=== PATIENT | male | born 1950 | race Caucasian/White ===

== ENCOUNTER 2018-03-18 18:56 | Inpatient (IN) | payer MEDICARE ==
[~2018-03-18 18:56] MED LIST: ISOVUE-370 76%-LOCM 1 ML ONE
[2018-03-18] MEDS ORDERED: Ondansetron HCl/PF 4 MG/2 ML Vial ONE (19:20)
[2018-03-18 19:33] LABS: #Lymphocytes 1.4 thou/uL (1.20-3.40); #Monocytes 0.1 thou/uL (0.11-0.59); #Neutrophils 9.1 thou/uL (1.40-6.50); %Basophils 0.2 % (0.0-1.0); %Eosinophils 0.2 % (0.0-10.0); %Lymphocytes 13.3 % (21.0-51.0); %Neutrophils 85.3 % (42.0-75.0); Hemoglobin 17.1 g/dL (14.0-18.0); Mean Corpuscular Hemoglobin 36.8 pg (27.0-31.0); Mean Platelet Volume 6.9 fL (7.4-10.4); Platelet Count 204 thou/uL (130-400); RBC Distribution Width 12.2 % (11.5-14.5); Red Blood Cell (RBC) Count 4.66 mill/uL (4.70-6.10); White Blood Cell (WBC) Count 10.7 thou/uL (4.8-10.8)
[2018-03-18] MEDS ORDERED: Ondansetron HCl/PF 4 MG/2 ML Vial SLOW IVP SCH (19:45)
[2018-03-18] MEDS ORDERED: Sodium Chloride 0.9% 1,000 ML IV SCH (19:45)
[2018-03-18] MEDS ORDERED: Vancomycin HCl 1 GM in Premix Bag 1 BAG IVPB ONE (19:45)
[2018-03-18] MEDS ORDERED: MEROPENEM 1 GM/50 ML 1 GM in Premix Bag 1 BAG IVPB ONE (19:45)
[2018-03-18 19:50] LABS: Troponin I Less than 0.010 ng/mL (< 0.028)
[2018-03-18 20:03] LABS: Albumin 4.4 g/dL (3.4-4.8)
[2018-03-18 20:04] LABS: Chloride 97 mmol/L (98-107); Magnesium 1.7 mg/dL (1.6-2.6); Potassium 4.4 mmol/L (3.5-5.1); Sodium 133 mmol/L (136-145)
[2018-03-18 20:05] LABS: Calcium 9.9 mg/dL (7.8-10.44); Glucose 114 mg/dL (80-115)
[2018-03-18 20:06] LABS: Bilirubin Small (Negative); Blood, Urine Small (Negative); Clarity CLOUDY (Clear); Glucose, Urine (Dipstick) Negative (Negative); Leukocyte Moderate (Negative); Nitrite Negative (Negative); Protein, Urine (Dipstick) Negative (Neg-Trace); Specific Gravity, Urine 1.014 (1.002-1.036); pH, Urine 5.5 (5.0-9.0)
[2018-03-18 20:06] LABS: Globulin 3.4 g/dL (2.4-3.5); Protein, Total 7.8 g/dL (5.8-8.1)
[2018-03-18] MEDS ORDERED: Acetaminophen 500 MG TAB ONE (20:06)
[2018-03-18 20:07] LABS: Anion Gap 23 mmol/L (10-20); Bilirubin, Total 4.3 mg/dL (0.2-1.2); Carbon Dioxide 17 mmol/L (23-31)
[2018-03-18 20:08] LABS: Alkaline Phosphatase 121 U/L (40-150)
[2018-03-18 20:08] LABS: Bacteria/HPF 2+ HPF (None Seen); Squamous Epithelial None Seen HPF (0-3); WBC/HPF 21-50 HPF (0-3)
--- NOTE | 2018-03-18 20:08 | RAD ---
PORTABLE CHEST: History: Cough. Comparison: None. FINDINGS/IMPRESSION: Cardiomegaly and mild vascular engorgement. I cannot exclude basilar infiltrate. No significant effus ion. The exam is limited due to soft tissue attenuation and portable technique. Consider upright PA and lateral views of chest in the department if patient can tolerate. POS: [facility]
[2018-03-18 20:09] LABS: Pathc Cast-AUWi Flag 2.61 (0-2.49)
[2018-03-18 20:09] LABS: Calc. Creatinine Clearance 0 mL/min (70-130); Estimated GFR-MDRD 43
[2018-03-18 20:10] LABS: BUN (Urea Nitrogen) 21 mg/dL (8.4-25.7)
[2018-03-18 20:11] LABS: ALT (SGPT) 87 U/L (8-55); AST (SGOT) 119 U/L (5-34)
[2018-03-18 20:12] LABS: CK (CPK) 719 U/L (30-200)
[2018-03-18 20:22] LABS: Hyaline Casts/LPF NONE SEEN LPF (0-3 Hyaline); RBC/HPF 0-3 HPF (0-3)
[2018-03-18 20:25] LABS: Lipase 15361 U/L (8-78)
--- NOTE | 2018-03-18 22:47 | CT ---
CT ABDOMEN AND PELVIS WITH CONTRASTS: Technique: Multiple contiguous axial images were obtained through the abdomen and pelvis with IV enha ncement. Indications: Abdominal pain. Comparison: None. FINDINGS: Lungs are clear. Liver and spleen unremarkable. There are numerous radiopaque gallstones layering in the gallbladder. There is inflammatory change burnett rrounding the head of the pancreas and the second portion of the duodenum. Pancreatis should be exclu ded. There is no evidence of pseudocyst. There is a large cyst which is predominately exophytic from the superior right kidney measuring up to 10 cm. There is a second 3 cm cyst from the posterior right kidney. No hydronephrosis. Aorta normal caliber although calcified. Small bowel loops normal caliber. Scattered diverticula throughout the entire colon. Patient appears to be post left colectomy. There i s a left colostomy in the left abdomen. There is a parastomal hernia with hernia sac herniated throug h this anterior abdominal wall defect. The hernia sac contains colon and small bowel. No evidence of obstruction or strangulation. Images through the pelvis shows a contracted urinary bladder. Post-operative changes are seen at the rectum with prior resection of the rectosigmoid region. There are post-operative changes at this site along with increased presacral soft tissue density, probably on the basis of operative change. IMPRESSION: 1. Cholelithiasis with numerous gallstones and a mildly distended gallbladder. There are inflammatory changes surrounding the pancreas most prominent around the head of the pancreas and second portion o f the duodenum. Pancreatitis should be excluded. 2. Large right renal cyst as described above. 3. A parastomal anterior abdominal wall hernia in the left abdomen. POS: [facility]
[2018-03-18] MEDS ORDERED: Norepinephrine 8 MG/0.9% NS 250 ML ONE (22:48)
--- NOTE | 2018-03-19 00:02 | PDOC.FPRHP ---
- History of Present Illness Chief Complaint: Abdominal pain History of Present Illness: 67yo M with PMH of HTN, HLD, Gout, BPH presenting with a 1.5 day history of severe RUQ abdominal pain. Pt characterized pain as severe and sharp, migrating between RUQ and epigastric region with radiation to the back. Associated Nausea and Vomitting x5 (vomit clear and watery). ED Course: Pt was hypotensive on presentation, was given 4L NS and started on pressors. CT abdomen- cholelithiasis with distended gallbladder, inflamed pancreas. Pt was given Tylenol for pain and started on Vanc 1g and Merrem 1g for UTI and presumed ascending cholangitis. - Allergies/Adverse Reactions Allergies Allergy/AdvReac Type Severity Reaction Status Date / Time Penicillins Allergy Verified 03/19/18 01:32 - Home Medications Medication Instructions Recorded Confirmed Type Allopurinol 300 mg PO HS 03/19/18 03/20/18 History Aspirin [Adult Aspirin] 81 mg PO HS 03/19/18 03/20/18 History Atorvastatin Calcium 20 mg PO HS 03/19/18 03/20/18 History Ibuprofen 800 mg PO HS 03/19/18 03/20/18 History Lisinopril 5 mg PO DAILY 03/19/18 03/19/18 History Metoprolol Tartrate 50 mg PO BID 03/19/18 03/19/18 History Tamsulosin HCl 0.4 mg PO HS 03/19/18 03/20/18 History Triamterene/Hydrochlorothiazid 1 cap PO DAILY 03/19/18 03/19/18 History [Maxide] Folic Acid [Folvite] 1 mg PO DAILY #30 tab 03/21/18 Rx Multivitamin W/ Minerals 1 tab PO DAILY #30 tab 03/21/18 Rx [Theragran M] metroNIDAZOLE [Metronidazole] 500 mg PO BID #14 tablet 03/21/18 Rx - History PMHx: HTN, HLD, BPH, Gout PSHx: Partial Colectomy and appendectomy (14 years ago) FHx: Cholescystitis and cholecystectomy (father) Social: EtOH- 2-4 drinks/night several nights/week. No history of DTs or withdrawal symptoms. Tobacco- denies, drugs- denies - Review of Systems General: reports: fever/chills Respiratory: denies: cough, congestion, shortness of breath Cardiovascular: denies: chest pain, palpitation Gastrointestinal: reports: nausea, vomiting Genitourinary: reports: dysuria. denies: other (hematuria) - Vital signs BP: [92/58] HR: [83] RR: [20] Tmax: [101.7] Pox: [99]% on [2] Wt: [95.25] - Physical Exam Constitutional: awake, alert and oriented HEENT: normocephalic and atraumatic, EOMI Chest: no-tender to palpation Heart: RRR, normal S1/S2 Lungs: CTAB, no respiratory distress Abdomen: soft -Abdomen: tenderness to palpation of epigastric and RUQ. no guarding Skin: no rash/lesions, good turgor Psychiatric: normal mood and affect, good judgment and insight FMR H&P: Results - Labs Result Diagrams: 03/21/18 05:13 03/21/18 05:13 Lab results: WBC 10.7 thou/uL (4.8-10.8) 03/18/18 19:16 Hgb 17.1 g/dL (14.0-18.0) 03/18/18 19:16 Hct 47.6 % (42.0-52.0) 03/18/18 19:16 MCV 102.0 fL (78.0-98.0) H 03/18/18 19:16 Plt Count 204 thou/uL (130-400) 03/18/18 19:16 Neutrophils % 85.3 % (42.0-75.0) H 03/18/18 19:16 Sodium 133 mmol/L (136-145) L 03/18/18 19:16 Potassium 4.4 mmol/L (3.5-5.1) 03/18/18 19:16 Chloride 97 mmol/L (98-107) L 03/18/18 19:16 Carbon Dioxide 17 mmol/L (23-31) L 03/18/18 19:16 BUN 21 mg/dL (8.4-25.7) 03/18/18 19:16 Creatinine 1.61 mg/dL (0.6-1.3) H 03/18/18 19:16 Glucose 114 mg/dL (80-115) 03/18/18 19:16 Lactic Acid 3.5 mmol/L (0.5-2.2) H 03/18/18 20:49 Calcium 9.9 mg/dL (7.8-10.44) 03/18/18 19:16 Total Bilirubin 4.3 mg/dL (0.2-1.2) H 03/18/18 19:16 AST 119 U/L (5-34) H 03/18/18 19:16 ALT 87 U/L (8-55) H 03/18/18 19:16 Alkaline Phosphatase 121 U/L (40-150) 03/18/18 19:16 Creatine Kinase 719 U/L (30-200) H 03/18/18 19:16 CK-MB (CK-2) 14.0 ng/mL (0-6.6) H* 03/18/18 19:16 Serum Total Protein 7.8 g/dL (5.8-8.1) 03/18/18 19:16 Albumin 4.4 g/dL (3.4-4.8) 03/18/18 19:16 Lipase 88761 U/L (8-78) H 03/18/18 19:16 Urine Ketones Negative mg/dL (Negative) 03/18/18 19:57 Urine Blood Small (Negative) H 03/18/18 19:57 Urine Nitrite Negative (Negative) 03/18/18 19:57 Ur Leukocyte Esterase Moderate (Negative) H 03/18/18 19:57 Urine RBC 0-3 HPF (0-3) 03/18/18 19:57 Urine WBC 21-50 HPF (0-3) H 03/18/18 19:57 Ur Squamous Epith Cells None Seen HPF (0-3) 03/18/18 19:57 Urine Bacteria 2+ HPF (None Seen) H 03/18/18 19:57 FMR H&P: A/P - Problem List (1) Septic shock Status: Resolved Code(s): A41.9 - SEPSIS, UNSPECIFIED ORGANISM; R65.21 - SEVERE SEPSIS WITH SEPTIC SHOCK (2) Pancreatitis due to common bile duct stone Status: Acute Code(s): K85.90 - ACUTE PANCREATITIS WITHOUT NECROSIS OR INFECTION, UNSP; K80.50 - CALCULUS OF BILE DUCT W/O CHOLANGITIS OR CHOLECYST W/ O OBST (3) UTI (urinary tract infection) Status: Resolved (4) Ascending cholangitis Status: Acute Code(s): K83.0 - CHOLANGITIS (5) Hyperbilirubinemia Status: Resolved Code(s): E80.6 - OTHER DISORDERS OF BILIRUBIN METABOLISM (6) BPH (benign prostatic hyperplasia) Status: Chronic Code(s): N40.0 - BENIGN PROSTATIC HYPERPLASIA WITHOUT LOWER URINRY TRACT SYMP (7) Increased anion gap metabolic acidosis Status: Resolved Code(s): E87.2 - ACIDOSIS (8) HTN (hypertension) Status: Chronic Code(s): I10 - ESSENTIAL (PRIMARY) HYPERTENSION (9) Gout Status: Acute Code(s): M10.9 - GOUT, UNSPECIFIED (10) Renal cyst Status: Chronic Code(s): N28.1 - CYST OF KIDNEY, ACQUIRED (11) Macrocytosis Status: Acute Code(s): D75.89 - OTHER SPECIFIED DISEASES OF BLOOD AND BLOOD- FORMING ORGANS - Plan 67yo M presenting with abdominal pain Septic Shock 2/2 Ascending cholangitis vs UTI A- MAP >65 s/p initiation of levophed in the ER. Pt s/p 4L NS P- Admit ICU on levophed gtt. - Continue Meropenem for intra-abdominal infection and for coverage of most likely UTI bacteria. No need for renal adjustment. Adjust as needed if CrCl <50 mL/Hr - f/u on BCx and UCx - LR at 150 mL/Hr a/ strict I/Os for goal UOP 0.5 mL/Kg/Hr - General Surgery and GI consulted from the ER and are aware of patient to eval for Urgent ERCP and cholecystectomy Acute Gallstone Pancreatitis A- BISAP 2 giving patient a 2% mortality risk P- Will continue on w/ IVF w/ LR @ 150 mL/Hr as above for goal UOP >0.5 mL/Kg/Hr - NPO - IV morphine available for pain control - GI and surgery consulted - Cont. w/ abx as noted Anion Gap Metabolic Acidosis A- likely 2/2 lactic acidosis from Septic Shock P- Cont. w/ IVF, repeat Lactate pending Elevated LFTs and Hyperbilirubinemia A- likely 2/2 obstructing stone P- GI consulted for ERCP w/ likely sphincterotomy - Gen surg consulted for cholecystectomy - Cont. w/ IVF - routine CMPs pending operative treatment JENIFER vs CKD3 A- Pt w/o prior visits to compare current renal function off of P- routine labs - Renally dose meds as needed Parastomal anterior wall abdominal hernia (non-encarcerated/non-strangulated) -General Surgery consulted from ER, likely will address outpt. 10 cm Right Renal Cyst A- No evidence of obstruction or hydronephrosis P- b/l renal U/S to further evaluated Macrocytosis without anemia - likely from EtOH misuse - RBC Folate, B12, homocysteine, and MMA labs to further evaluate EtOH abuse - Will place patient on ASE protocol 2/2 concern for possible withdrawal - Q24 hr banana bags thiamine supplementation - Counseling HTN -Hold home meds in setting of septic shock HLD -Hold statin in setting of elevated LFT's and hyperbilirubinemia BPH - Cont. home Flomax Gout - Cont. w/ allopurinol FMR H&P: Upper Level - Pertinent history 67 y/o M w/ PMHx of HTN, HLD, BPH, and colon cancer s/p partial colectomy w/ ostomy presents for eval of acute onset nausea and vomiting approx. 1 day ago. Pt reports having chills as well and RUQ abdominal pain that radiates into his back. Pt also endorsing some burning with urination. Pt unable to keep down any fluids 2/2 this. Pt found to be febrile to 101.7 degrees F and tachycardic upon arrival to the ED. He has received 4L of NS in the ER and was started on Vanc and meropenem for antibiotics. Central line was placed w/ BP not responding to IVF and he was started on levophed to maintain his blood pressure. For further details please refer to academic intern note. - Pertinent findings Vitals BP 104/61 HR 101 RR 20 Temp 98.8 degF O2 sat 99% on 2L NC Labs CT-AP Cholelithiasis with numerous gallstones and mildly distended gallbladder. Inflammatory changes surrounding the pancreas most prominent around the head of the pancreas and second portion of the duodenum. 10 cm superior R-renal cyst. Parastomal anterior abdominal wall hernia in the left abdomen. Lipase 15,361 Lactate 3.5 LDH 404 WBC 10.7 Hgb 17.1 Hct 47.6 Plt -204 Neut % - 85.3 Na 133 K 4.4 Cl 97 Co2 17 BUN -21 Cr 1.61 T. bili 4.3 AST 119 ALT 87 CK-MB 14 Trop - <0.01 U/A Moderate LE Small bilirubin Small blood WBC 21-50 2+ bacteria PE: GEN: Obese, NAD PULM: CTA-B/l, no rales or rhonci CARDS: RRR, no mumurs, rubs, or gallops GI: TTP w/ guarding RUQ and epigastrium (RUQ>epigastrium). Otherwise soft. No rigidity EXT: Moves all 4 ext. equally - Plan Date/Time: 03/18/18 6190 I, B. Corby Garzon MD, have evaluated this patient and agree with findings/plan as outlined by academic intern resident. Pertinent changes/additions are listed here. 67 y/o M w/: 1. Septic Shock 2/2 Ascending cholangitis vs UTI -MAP >65 s/p initiation of levophed in the ER. Admit ICU on levophed gtt. -Cont. w/ Meropenem for single angent empiric antibiotic coverage for his intra- abdominal infection. This should also cover for most likely bacteria for UTI as well. CrCl 58 mL/min, no need for dose adjustment at this time. Will continue to monitor and adjust as needed if CrCl <50 mL/Hr -BCx and UCx obtained in the ER. -Pt s/p 4L of NS meeting requirements for 30 mL/Kg fluid resuscitation -Will continue w/ LR at 150 mL/Hr a/ strict I/Os for goal UOP 0.5 mL/Kg/Hr -General Surgery and GI consulted from the ER and are aware of patient to eval for Urgent ERCP and cholecystectomy 2. Acute Gallstone Pancreatitis -BISAP 2 giving patient a 2% mortality risk -Will continue on w/ IVF w/ LR @ 150 mL/Hr as above for goal UOP >0.5 mL/Kg/Hr -Will keep pt NPO for bowel rest and have IV morphine available for pain control -GI and surgery consulted for definitive management as noted above -Cont. w/ abx as noted above for extrapancreatic infection 3. Anion Gap Metabolic Acidosis likely 2/2 lactic acidosis from #1 - Likely 2/2 #1. - Cont. w/ IVF, repeat Lactate pending at time of note 4. Elevated LFTs and Hyperbilirubinemia likely 2/2 obstructing stone GI consulted for ERCP w/ likely sphincterotomy and Gen surg consulted for cholecystectomy Cont. w/ IVF and will continue to monitor w/ routine CMPs pending definitive operative treatment 5. JENIFER vs CKD3 - Pt w/o prior visits to compare current renal function off of - Will continue to monitor w/ routine labs - Renally dose meds as needed 6. Parastomal anterior wall abdominal hernia (non-encarcerated/non-strangulated) -General Surgery consulted from ER, will ask them to evaluate this as well however it does not appear to be urgent at this time and can likely be followed outpatient 7. 10 cm Right Renal Cyst No evidence of obstruction or hydronephrosis Will obtain b/l renal U/S to further evaluated 8. Macrocytosis without anemia - Pt w/ endorsed EtOH intake which this is likely from - Will obtain RBC Folate, B12, homocysteine, and MMA labs to further evaluate 9. EtOH abuse - Will place patient on ASE protocol 2/2 concern for possible withdrawal - Q24 hr banana bags thiamine supplementation - Counseling 10. HTN -Hold home meds in setting of #1 11. HLD -Hold statin in setting of #4 12. BPH - Cont. w/ Flomax 13. Gout - Cont. w/ allopurinol (CrCl 58.24 mL/min) CODE STATUS: FULL CODE LOS > 2 midnights Attending Addendum - Attending Addendum Date/Time: 03/19/18 1031 I personally evaluated the patient and discussed the management with Dr. Bob and Dr. Garzon I agree with the History, Examination, Assessment and Plan documented above with any addition or exceptions noted below. 67 yo male with multiple medical conditions presents with complicated gallstone pancreatitis and ascending cholangitis with septic shock. Has been started on Levophed for maintenance of blood pressure. Currently appears well dispite lab findings. Continue meropenum. Unsure need for Vanc at this time. Place in ICU. Consult GI and Pulm for co-management. Continue to trend labs and monitor VS and UOP closely throughout the night. Tosha
--- NOTE | 2018-03-19 00:10 | RAD ---
PORTABLE CHEST: History: Fever, chills. Comparison: 03-18-18 FINDINGS/IMPRESSION: The lungs appear clear of infiltrate. Heart size is upper normal. There is a central line in place wi th tip overlying the SVC. No acute lung process identified. POS: [facility]
[2018-03-19 00:23] LABS: Troponin I 0.025 ng/mL (< 0.028)
[2018-03-19] MEDS ORDERED: Ondansetron HCl/PF 4 MG/2 ML Vial IVP PRN (01:11)
[2018-03-19] MEDS ORDERED: Ondansetron ODT 4 MG TAB SL PRN (01:11)
[2018-03-19] MEDS ORDERED: Fentanyl 100 MCG/2 ML VIAL SLOW IVP PRN (01:12)
[2018-03-19] MEDS ORDERED: Sodium Chloride 0.45% 1,000 ML IV SCH (01:15)
[2018-03-19] MEDS ORDERED: Norepinephrine 8 MG/0.9% NS 250 ML IVPB SCH (01:39)
[2018-03-19] MEDS ORDERED: Morphine 4 MG/ML VIAL SLOW IVP PRN (01:39)
[2018-03-19] MEDS ORDERED: CCU Electrolyte Replacement 1 EACH FS ONE (01:39)
[2018-03-19] MEDS ORDERED: Potassium Phosphate 12 MMOL in Sodium Chloride 0.9% 250 ML 250 ML IV PRN (02:02)
[2018-03-19] MEDS ORDERED: CCU ELECTROLYTE REPLACEMENT PROTOCOL FS PRN (02:02)
[2018-03-19] MEDS ORDERED: Potassium Chloride 40 MEQ in Premix Bag 1 BAG IVPB PRN (02:02)
[2018-03-19] MEDS ORDERED: Potassium Phosphate 15 MMOL in Sodium Chloride 0.9% 250 ML 250 ML IV PRN (02:02)
[2018-03-19] MEDS ORDERED: Potassium Chloride 20 MEQ TAB PO PRN (02:02)
[2018-03-19] MEDS ORDERED: Magnesium 2 GM/NS 0.9% 100 ML 2 GM in Premix Bag 1 BAG IVPB PRN (02:02)
[2018-03-19] MEDS ORDERED: Potassium Phosphate 9 MMOL in Sodium Chloride 0.9% 100 ML IVPB PRN (02:02)
[2018-03-19] MEDS ORDERED: Potassium Chloride 40 MEQ in Sodium Chloride 0.9% 250 ML 250 ML IVPB PRN (02:02)
[2018-03-19] MEDS ORDERED: Magnesium Oxide 400 MG TAB PO PRN ×2 (02:02)
[2018-03-19] MEDS: Lactated Ringer's 1,000 ML IV SCH ×3 (02:06→18:19)
[2018-03-19 02:21] LABS: Reticulocyte Count 2.5 % (0.5-1.5)
[2018-03-19 02:47] LABS: Band 30 % (5-11); Hemoglobin 13.9 g/dL (14.0-18.0); Lymphocytes 2 % (21-51); MDiff Complete? YES; Mean Corpuscular HGB CONC 36.5 g/dL (32.0-36.0); Mean Corpuscular Hemoglobin 36.8 pg (27.0-31.0); Mean Platelet Volume 6.2 fL (7.4-10.4); Monocytes 2 % (0-10); Neutrophil 66 % (42-75); PLT Morphology Comment Appears Adequate; Platelet Count 134 thou/uL (130-400); RBC Distribution Width 12.1 % (11.5-14.5); Red Blood Cell (RBC) Count 3.76 mill/uL (4.70-6.10); White Blood Cell (WBC) Count 21.7 thou/uL (4.8-10.8)
[2018-03-19] MEDS: Multivitamins, Adult 10 ML, Folic Acid 1 MG, Thiamine HCl 100 MG in Dextrose 5 %-0.45 %... IV SCH (02:52)
[2018-03-19 03:05] LABS: Troponin I 0.026 ng/mL (< 0.028)
[2018-03-19 03:09] LABS: ALT (SGPT) 80 U/L (8-55); AST (SGOT) 92 U/L (5-34); Albumin 3.2 g/dL (3.4-4.8); Alkaline Phosphatase 81 U/L (40-150); Anion Gap 10 mmol/L (10-20); BUN (Urea Nitrogen) 21 mg/dL (8.4-25.7); Bilirubin, Total 4.9 mg/dL (0.2-1.2); Calc. Creatinine Clearance 74 mL/min (70-130); Calcium 8.6 mg/dL (7.8-10.44); Carbon Dioxide 22 mmol/L (23-31); Chloride 103 mmol/L (98-107); Estimated GFR-MDRD 41; Globulin 2.1 g/dL (2.4-3.5); Glucose 105 mg/dL (80-115); Potassium 3.8 mmol/L (3.5-5.1); Protein, Total 5.3 g/dL (5.8-8.1); Sodium 131 mmol/L (136-145)
[2018-03-19] MEDS: MEROPENEM 1 GM/50 ML 1 GM in Premix Bag 1 BAG IVPB SCH ×3 (05:43→21:13)
--- NOTE | 2018-03-19 06:33 | CON ---
DATE OF CONSULTATION: 03/18/2018 HISTORY OF PRESENT ILLNESS: The patient is a 67-year-old male who was in his normal state 2 days ago when he developed right upper quadrant abdominal pain. This pain radiated up into his rig ht shoulder blade, was associated with nausea and vomiting without diarrhea. He had not had previous episodes of pain like this in the past. PAST MEDICAL HISTORY: A permanent colostomy for colorectal cancer. ALLERGIES: PENICILLIN. MEDICATIONS: Antihypertensive and cholesterol lowering medication. SOCIAL HISTORY: He does not smoke. Drinks occasional beer. FAMILY HISTORY: Negative. REVIEW OF SYSTEMS: Ten systems were reviewed and were negative except for above. PHYSICAL EXAMINATION: GENERAL: Shows an overweight male in no acute distress. HEENT: Unremarkable. NECK: Supple. CHEST: Clear. CARDIOVASCULAR: Regular rate and rhythm. ABDOMEN: Soft, nontender, without organomegaly or masses. He has a colostomy in the left lower quad rant. EXTREMITIES: Normal. NEUROLOGIC: Nonfocal. LABORATORY: Shows a white blood cell count 10.7, hemoglobin 17.1, hematocrit of 47.6. Chemistries s ignificant for sodium of 133, CO2 17, creatinine 1.61, total bilirubin 43, AST 119, ALT 87. Lipase o f 15, ____ 361. Urinalysis shows 21-[address] and pelvic [address] shows cholelithiasis with numerous gallstones and mildly distended gallbladde r. There are inflammatory changes around the pancreas, most prominent around the head of the pancrea s and second portion of duodenum, large right renal cyst, parastomal anterior wall abdominal hernia i n the left lower quadrant. ASSESSMENT: 1. Gallstone pancreatitis. 2. Hemoconcentration. 3. Abnormal liver function tests. RECOMMENDATIONS: 1. Aggressive fluid hydration. 2. ERCP in a.m.
[2018-03-19] MEDS ORDERED: Iothalamate Meglumine 60% 50 ML VIAL FS ONE (07:13)
[2018-03-19] MEDS ORDERED: Midazolam HCl 2 mg/2 ml Vial ONE (07:48)
[2018-03-19] MEDS ORDERED: Fentanyl 100 MCG/2 ML VIAL ONE (07:48)
--- NOTE | 2018-03-19 08:30 | ULT ---
RENAL ULTRASOUND: INDICATION: History of abdominal pain and renal cyst. COMPARISON: Prior CT of the abdomen and pelvis with contrast. FINDINGS: There is a mildly septated cyst involving the superior pole of the right kidney measuring up to 11.9 x 9.3 cm. There is an additional simple cyst measuring 3 cm involving the right mid kidney. There i s a small simple cyst involving the inferior pole of the left kidney measuring 1.6 cm. The bladder a ppeared within normal limits. The right kidney measured 12.2 x 5.8 x 3.9 cm. The left kidney measured 13.5 x 6.2 x 4.4 cm. IMPRESSION: Large bilateral renal cysts. The largest cyst within the superior pole of the right kidney is mildly septated. Followup examination in 1 year is recommended to document stability. POS: [facility]
--- NOTE | 2018-03-19 08:36 | CON ---
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 He did not want to give much history, stated that he presented with abdominal pain, nausea and vomiting. Workup in the ER yesterday revealed cholelithiasis, numerous gallstones, distended gallbladder, infla mmation around the pancreas, probably head of the pancreas. ____ was taken, it is unremarkable. SOCIAL HISTORY: He is a nonsmoker. He drinks 2-3 beers a day. Pulmonary seeing him since the patient is in the ICU. He is apparently scheduled to go for an ERCP e rody this morning by GI. He was hypertensive in the ER, he received a large volume of fluids and started on broad-spectrum ant ibiotics. He is on meropenem at the present time. PAST MEDICAL HISTORY: Pertinent otherwise for hypertension, colon cancer. MEDICATIONS: His list of medicine from home and includes metoprolol 50, Dyazide one a day, lisinopr il 5 a day, atorvastatin 20. PAST SURGICAL HISTORY: Otherwise have included colon resection with colostomy 30 years ago. SOCIAL HISTORY: As noted. He works on a pipeline. FAMILY HISTORY: Otherwise unremarkable. REVIEW OF SYSTEMS: Otherwise, 10-point negative. PHYSICAL EXAMINATION: VITAL SIGNS: Pulse is 50, blood pressure 117/57 on Levophed. Sats 90% on room air, respiration rate 16. GENERAL: Appears to be in no acute distress. CHEST: Decreased breath sounds, no wheezing. CARDIAC: Normal S1, S2, no gallops. ABDOMEN: Soft, no mass. White count 21,000, H&H 13 and 38, platelet count 134, creatinine 1.6, otherwise electrolytes are nor mal. IMPRESSION: 1. Abdominal pain secondary to a gallstone pancreatitis, cholecystitis. 2. Hypertension. 3. Cholangitis 4. Hypertension. 5. Renal failure. 6. History of previous colon cancer status post colostomy. PLAN: I agree with meropenem and IV fluids. Will follow while in the ICU. This is a consultation note, 70 minutes, 50% spent in direct patient care.
[2018-03-19] MEDS ORDERED: Prevnar 13-Val Conj/PF 0.5 ML SYRINGE IM ONE (09:00)
--- NOTE | 2018-03-19 10:23 | OP ---
PREOPERATIVE DIAGNOSIS: Gallstone pancreatitis. PROCEDURE: After informed consent was obtained, the patient placed in left lateral decubitus positio n. Anesthesia was administered per the Anesthesia Department. Side-viewing endoscope was inserted i nto esophagus under direct visualization with ease and passed to the second portion of the duodenum w ith ease. No mucosal abnormalities were noted. Tapered-tip cannula was inserted into the common lui e duct and the cholangiogram revealed multiple filling defects. A sphincterotomy was performed and t he duct was swept with a 12-mm balloon revealing multiple black stones. Occlusion cholangiogram show ed no further filling defects. ASSESSMENT: 1. Choledocholithiasis. 2. Status post sphincterotomy and stone extraction. RECOMMENDATIONS: Proceed with cholecystectomy.
[2018-03-19] MEDS: Tamsulosin HCl 0.4 MG CAP PO SCH (11:00)
--- NOTE | 2018-03-19 11:07 | RAD ---
ERCP: A single fluoroscopic image taken during ERCP procedure in the OR is presented. INDICATION: Cholelithiasis and pancreatitis. Intraoperative images for ERCP procedure. FINDINGS: The single image shows opacification of the common duct. No filling defect identified on the single image. POS: [facility]
[2018-03-19] MEDS: Allopurinol 300 MG TAB PO SCH (12:16)
[2018-03-19] MEDS: Enoxaparin Sodium 40 MG/0.4 ML SYRINGE SC SCH (12:17)
[2018-03-19] MEDS ORDERED: Lidocaine 1% PF 5 ML VIAL ONE (12:22)
[2018-03-19] MEDS ORDERED: Ondansetron HCl/PF 4 MG/2 ML Vial ONE (12:22)
[2018-03-19] MEDS ORDERED: Dexamethasone 20 MG/5 ML VIAL ONE (12:22)
[2018-03-19] MEDS ORDERED: PROPOFOL 200 MG/20 ML VIAL ONE (12:22)
[2018-03-19] MEDS ORDERED: Succinylcholine Chloride 20 MG/ML 10 ml SYRINGE FS ONE (12:22)
[2018-03-19] MEDS ORDERED: Diazepam 5 MG TAB PO PRN (14:37)
[2018-03-19] MEDS ORDERED: Thiamine HCl 200 MG/2 ML VIAL IM SCH (14:45)
[2018-03-20] MEDS: Multivitamins, Adult 10 ML, Folic Acid 1 MG, Thiamine HCl 100 MG in Dextrose 5 %-0.45 %... IV SCH (02:43)
[2018-03-20] MEDS ORDERED: Diazepam 5 MG TAB PO PRN (04:00)
--- NOTE | 2018-03-20 05:28 | PDOC.FM ---
- Subjective Subjective: Cleve Sanchez seen at bedside this morning. He is feeling better, he has no complaints. There were no acute events overnight. His labs have shown some improvement this morning and he states that his abdominal pain is improved. The levophed ggt was discontinued on 03/19 after the ERCP and he has maintained adequate BPs without pressors. He denies any fever, chills, chest pain, dyspnea , n/v. - Objective MAR Reviewed: Yes Vital Signs & Weight: Vital Signs (12 hours) Temp Pulse Resp BP BP Pulse Ox 03/20/18 04:26 97.5 F L 59 L 19 112/65 96 03/20/18 04:00 112/65 03/20/18 00:00 103/59 L 03/19/18 23:42 97.2 F L 59 L 17 103/59 L 99 03/19/18 22:14 60 18 131/66 100 03/19/18 20:00 98.7 F 63 16 99 Weight Admit Weight 124.284 kg Weight 123.74 kg Most Recent Monitor Data Heart Rate from ECG 57 NIBP 111/62 NIBP BP-Mean 75 Respiration from ECG 15 SpO2 94 I&O: 03/18/18 03/19/18 03/20/18 06:59 06:59 06:59 Intake Total 616.8 1456 Output Total 501 2426 Balance 115.8 -970 Result Diagrams: 03/19/18 01:53 03/20/18 04:40 <Fahad Pope - Last Filed: 03/20/18 06:37> - Objective Vital Signs & Weight: Vital Signs (12 hours) Temp Pulse Resp BP BP Pulse Ox 03/20/18 07:39 97.6 F 74 23 H 99 03/20/18 07:38 97.6 F 74 23 H 118/70 99 03/20/18 07:37 118/70 03/20/18 04:26 97.5 F L 59 L 19 112/65 96 03/20/18 04:00 112/65 03/20/18 00:00 103/59 L 03/19/18 23:42 97.2 F L 59 L 17 103/59 L 99 03/19/18 22:14 60 18 131/66 100 Weight Admit Weight 124.284 kg Weight 123.74 kg Most Recent Monitor Data Heart Rate from ECG 57 NIBP 111/62 NIBP BP-Mean 75 Respiration from ECG 15 SpO2 94 I&O: 03/19/18 03/20/18 03/21/18 06:59 06:59 06:59 Intake Total 616.8 3041 Output Total 501 2726 Balance 115.8 315 Result Diagrams: 03/20/18 04:40 03/20/18 04:40 <Carlo Forte - Last Filed: 03/20/18 10:03> Phys Exam - Physical Examination Constitutional: NAD HEENT: moist MMs, sclera anicteric Neck: no JVD, supple, full ROM Respiratory: no wheezing, no rales, no rhonchi, clear to auscultation bilateral Cardiovascular: RRR, no significant murmur Gastrointestinal: soft, non-tender, no distention, positive bowel sounds Musculoskeletal: no edema, pulses present Neurological: non-focal, normal sensation, moves all 4 limbs Psychiatric: normal affect, A&O x 3 Skin: no rash, normal turgor <Fahad Pope - Last Filed: 03/20/18 06:37> Dx/Plan (1) Septic shock Code(s): A41.9 - SEPSIS, UNSPECIFIED ORGANISM; R65.21 - SEVERE SEPSIS WITH SEPTIC SHOCK Status: Resolved (2) Pancreatitis due to common bile duct stone Code(s): K85.90 - ACUTE PANCREATITIS WITHOUT NECROSIS OR INFECTION, UNSP; K80.50 - CALCULUS OF BILE DUCT W/O CHOLANGITIS OR CHOLECYST W/O OBST Status: Acute (3) Ascending cholangitis Code(s): K83.0 - CHOLANGITIS Status: Acute (4) Increased anion gap metabolic acidosis Code(s): E87.2 - ACIDOSIS Status: Resolved (5) HTN (hypertension) Code(s): I10 - ESSENTIAL (PRIMARY) HYPERTENSION Status: Chronic (6) BPH (benign prostatic hyperplasia) Code(s): N40.0 - BENIGN PROSTATIC HYPERPLASIA WITHOUT LOWER URINRY TRACT SYMP Status: Chronic (7) Hyperbilirubinemia Code(s): E80.6 - OTHER DISORDERS OF BILIRUBIN METABOLISM Status: Acute (8) Macrocytosis Code(s): D75.89 - OTHER SPECIFIED DISEASES OF BLOOD AND BLOOD-FORMING ORGANS Status: Acute (9) UTI (urinary tract infection) Status: Acute (10) Renal cyst Code(s): N28.1 - CYST OF KIDNEY, ACQUIRED Status: Chronic - Plan Plan: 1) Septic Shock 2/2 Ascending cholangitis vs UTI - MAP >65 s/p initiation of levophed in the ER. Admit ICU on levophed gtt. - Now on IVFs @ 150 ml/hr, taken off levophed ggt after procedure on 03/19 - Cont. w/ Meropenem for single angent empiric antibiotic coverage for his intra-abdominal infection and UTI - BCx and UCx obtained in the ER, Urine Cx has grown presumptive E. coli, pending sensitivities - Continue w/ LR at 150 mL/Hr a/ strict I/Os for goal UOP 0.5 mL/Kg/Hr - General Surgery and GI consulted, appreciate recs 2) Acute Gallstone Pancreatitis - BISAP 2 giving patient a 2% mortality risk - Will continue on w/ IVF w/ LR @ 150 mL/Hr as above for goal UOP >0.5 mL/Kg/Hr - s/p ERCP with sphincterotomy and stone extraction on 03/19 - GI and surgery consulted, appreciate recs - Cont. w/ abx as noted above for extrapancreatic infection 3) Anion Gap Metabolic Acidosis likely 2/2 lactic acidosis from #1, resolved - Likely 2/2 #1. - Cont. w/ IVF 4) Elevated LFTs and Hyperbilirubinemia likely 2/2 obstructing stone - GI consulted, sphincterotomy and stone extraction done on 03/19 - Cont. w/ IVF and will continue to monitor 5) JENIFER vs CKD3 - Pt w/o prior visits to compare current renal function off of - Will continue to monitor w/ routine labs - Renally dose meds as needed 6) Parastomal anterior wall abdominal hernia (non-encarcerated/non-strangulated) - General Surgery consulted from ER - Appreciate recs 7) 10 cm Right Renal Cyst - No evidence of obstruction or hydronephrosis - B/l Renal US showed large b/l renal cysts, largest in superior pole of the right kidney. Recommended f/u in one year to document stability 8) Macrocytosis without anemia - Pt w/ endorsed EtOH intake which this is likely from - Vit B12 low at 155, methylmalonic acid pending - supplement 9) EtOH abuse - On ASE protocol 2/2 concern for possible withdrawal - Q24 hr banana bags thiamine supplementation - Counseling 10) HTN - Held home meds in setting of septic shock - Consider restarting once BPs return to patient's baseline 11) HLD - Hold statin in setting of elevated LFTs from obstructive CBD stones s/p extraction - trend labs and resume when normal 12) BPH - Cont. w/ Flomax 13) Gout - Cont. w/ allopurinol <Fahad Pope - Last Filed: 03/20/18 06:37> Attending Addendum - Attending Addendum Date/Time: 03/20/18 4960 I personally evaluated the patient and discussed the management with Dr. Pope I agree with the History, Examination, Assessment and Plan documented above with any addition or exceptions noted below. 67M on HD #2 for septic shock 2/2 acute cholangitis and UTI. He went for ERCP yesterday. Tolerated sphincterotomy and stone extraction well. Repeat cholangiogram was non occlusive. He is no longer requiring pressor support. Continue Meropenem and IVF. Draw Jenkins labs at 48 hours. He continues to be afebrile with normal vital signs and appropriate urine output. Transfer to medical. <Carlo Forte - Last Filed: 03/20/18 10:03>
[2018-03-20] MEDS: MEROPENEM 1 GM/50 ML 1 GM in Premix Bag 1 BAG IVPB SCH ×3 (05:49→21:48)
[2018-03-20] MEDS: Lactated Ringer's 1,000 ML IV SCH ×5 (05:49→21:48)
[2018-03-20 05:50] LABS: ALT (SGPT) 57 U/L (8-55); AST (SGOT) 49 U/L (5-34); Albumin 3.2 g/dL (3.4-4.8); Alkaline Phosphatase 84 U/L (40-150); Anion Gap 11 mmol/L (10-20); BUN (Urea Nitrogen) 20 mg/dL (8.4-25.7); Bilirubin, Total 1.5 mg/dL (0.2-1.2); Calc. Creatinine Clearance 93 mL/min (70-130); Calcium 8.7 mg/dL (7.8-10.44); Carbon Dioxide 24 mmol/L (23-31); Chloride 104 mmol/L (98-107); Estimated GFR-MDRD 54; Globulin 2.3 g/dL (2.4-3.5); Glucose 160 mg/dL (80-115); Potassium 4.1 mmol/L (3.5-5.1); Protein, Total 5.5 g/dL (5.8-8.1); Sodium 135 mmol/L (136-145)
[2018-03-20 06:07] LABS: ALT (SGPT) 58 U/L (8-55); AST (SGOT) 50 U/L (5-34); Albumin 3.1 g/dL (3.4-4.8); Alkaline Phosphatase 148 U/L (40-150); Bilirubin, Direct 0.7 mg/dL (0.1-0.3); Bilirubin, Total 1.5 mg/dL (0.2-1.2); Protein, Total 5.5 g/dL (5.8-8.1)
[2018-03-20 06:08] LABS: Lipase 1266 U/L (8-78)
[2018-03-20 07:55] LABS: Mean Corpuscular HGB CONC 35.9 g/dL (32.0-36.0); Mean Corpuscular Hemoglobin 37.4 pg (27.0-31.0); Mean Platelet Volume 6.8 fL (7.4-10.4); Platelet Count 121 thou/uL (130-400); RBC Distribution Width 12.4 % (11.5-14.5); Red Blood Cell (RBC) Count 3.48 mill/uL (4.70-6.10); White Blood Cell (WBC) Count 12.4 thou/uL (4.8-10.8)
[2018-03-20 07:56] LABS: Band 13 % (5-11); Lymphocytes 5 % (21-51); MDiff Complete? YES; Neutrophil 82 % (42-75); PLT Morphology Comment Appears Decreased; RBC Morphology 1
[2018-03-20] MEDS ORDERED: Lactated Ringer's 1,000 ML IV SCH (08:25)
--- NOTE | 2018-03-20 08:47 | CON ---
DATE OF CONSULTATION: 03/19/2018 REQUESTING PHYSICIAN: Dr. Velarde. ATTENDING SURGEON: Dr. Retana. HISTORY OF PRESENT ILLNESS: The patient is a 67-year-old man who reportedly had a 1-1/2 da y history of acute severe right upper quadrant pain, was brought into the emergency department where he underwent evaluation and examination and was noted to have a likely gallstone pancreatitis and cho langitis. The patient, in the emergency department, received 4 liters of crystalloid and was started on a vasopressor. The patient at this time is not a suitable candidate for cholecystectomy due to the degree of sepsis, currently this was discussed with the Family Medicine staff that once the patient is stabilized, we would definitely re-evaluate him for cholecystectomy. He is currently down in the operating room get ting his ERCP which is very appropriate and if the patient does not stabilize for surgery in a relati vely short amount of time, T tube placement would be the next option. We will assess the patient colton orrow rounds again and revisit surgical options with the primary team.
[2018-03-20] MEDS: Allopurinol 300 MG TAB PO SCH (08:57)
[2018-03-20] MEDS: Folic Acid 1 MG TAB PO SCH (08:58)
[2018-03-20] MEDS: Magnesium Oxide 400 MG TAB PO SCH (08:58)
[2018-03-20] MEDS: Enoxaparin Sodium 40 MG/0.4 ML SYRINGE SC SCH (08:58)
[2018-03-20] MEDS: Multivitamin W/ Minerals 1 TAB PO SCH (08:58)
[2018-03-20] MEDS ORDERED: chlordiazePOXIDE HCl 25 MG CAP PO SCH (10:15)
--- NOTE | 2018-03-20 11:59 | PRG ---
DATE OF SERVICE: 03/20/2018 SUBJECTIVE: This morning, he is better, less abdominal pain and shortness of breath. PHYSICAL EXAMINATION: VITAL SIGNS: Blood pressure is 118/70, sats 99 on 2 liters, respiratory rate 20, temperature 97. Cu ltures are growing out E. coli. CHEST: Chest revealed decreased breath sounds, no wheezing. CARDIAC: Normal S1, S2, no gallops. ABDOMEN: Massive, soft without any mass. LABORATORY DATA: Total bilirubin 1.5. White count 12,000, H and H 13 and 36, still got a big left s hift. IMPRESSION: 1. Pancreatitis, cholecystitis, sepsis. 2. Hypertension, resolved. PLAN: Continue meropenem to which it is sensitive, IV fluid hydration, PT. We will follow.
[2018-03-20 15:35] LABS: Folate,Hemolysate 267.7 ng/mL (Not Estab.); Hematocrit 38.4 % (37.5-51.0); RBC Folate Test Component 697 ng/mL (>498)
[2018-03-20] MEDS: chlordiazePOXIDE HCl 25 MG CAP PO SCH (16:24)
[2018-03-20] MEDS ORDERED: Artificial Tear Sol 15 ML BOT EA EYE PRN (17:19)
--- NOTE | 2018-03-20 18:27 | PRG ---
DATE OF SERVICE: 03/20/2018 HISTORY OF PRESENT ILLNESS: Mr. Sanchez is a 67-year-old man who was admitted 2 days ago with acute a scending cholangitis. He underwent an emergent ERCP. He has since improved dramatically. His septi c shock has since resolved. I am seeing this patient this morning who complains of no abdominal pain . PLAN: I discussed with him with regards to timing of his laparoscopic cholecystectomy. I have offered him a choice. He may have the surgery here, laparoscopic cholecystectomy with inheren t risks for bleeding, infection, injury to bile duct or surrounding structures. He also faces the ad ditional risk for conversion to open procedure given he has had 2 previous abdominal operations which may lend itself to intraabdominal adhesions. The alternative is to have his cholecystectomy when he returns back to his state of origin as long as the surgery is done within a relatively short period of time from the ERCP and sphincterotomy. The patient indicates understanding of information I provided him today. He is speaking with his later today and both of them will decide on what is the next line of act ion. I will be available to reevaluate the patient upon demand.
--- NOTE | 2018-03-20 20:07 | PRG ---
DATE OF SERVICE: 03/20/2018 SUBJECTIVE: The patient is feeling much better. He is tolerating a diet of clear liquids. He has n ot had any bowel movements. His pain is pretty much gone except for some mild soreness. OBJECTIVE: VITAL SIGNS: Temperature is 97.3, pulse 70, respiratory rate 16, blood pressure 156/72. CHEST: Clear. CARDIOVASCULAR: Regular rate and rhythm. ABDOMEN: Soft, nontender, without organomegaly or masses. LABORATORY DATA: Shows a sodium of 135, creatinine 1.31, glucose 160, total bilirubin 1.5, AST 49, A LT of 57. Lipase is 1266. ASSESSMENT: 1. Gallstone pancreatitis - much improved. 2. Choledocholithiasis - status post sphincterotomy and stone extraction. RECOMMENDATIONS: 1. The patient wants to go home to have his cholecystectomy and I think this is okay once his pancre atitis is resolved. 2. Advance diet.
[2018-03-20] MEDS ORDERED: Tamsulosin HCl 0.4 MG CAP PO SCH (21:45)
[2018-03-21] MEDS: chlordiazePOXIDE HCl 25 MG CAP PO SCH ×3 (00:43→11:34)
[2018-03-21] MEDS ORDERED: Diazepam 5 MG TAB PO PRN (01:02)
[2018-03-21] MEDS: Lactated Ringer's 1,000 ML IV SCH ×2 (04:09→11:25)
[2018-03-21 05:31] LABS: #Monocytes 0.5 thou/uL (0.11-0.59); #Neutrophils 7.8 thou/uL (1.40-6.50); %Basophils 0.1 % (0.0-1.0); %Eosinophils 0.1 % (0.0-10.0); %Lymphocytes 10.3 % (21.0-51.0); %Monocytes 4.8 % (0.0-10.0); %Neutrophils 84.6 % (42.0-75.0); Hemoglobin 12.7 g/dL (14.0-18.0); Mean Corpuscular HGB CONC 35.3 g/dL (32.0-36.0); Mean Platelet Volume 6.4 fL (7.4-10.4); Platelet Count 128 thou/uL (130-400); RBC Distribution Width 12.2 % (11.5-14.5); Red Blood Cell (RBC) Count 3.42 mill/uL (4.70-6.10); White Blood Cell (WBC) Count 9.2 thou/uL (4.8-10.8)
[2018-03-21 05:39] LABS: ALT (SGPT) 42 U/L (8-55); AST (SGOT) 26 U/L (5-34); Albumin 3.1 g/dL (3.4-4.8); Alkaline Phosphatase 66 U/L (40-150); Anion Gap 11 mmol/L (10-20); BUN (Urea Nitrogen) 16 mg/dL (8.4-25.7); Calc. Creatinine Clearance 120 mL/min (70-130); Calcium 8.9 mg/dL (7.8-10.44); Carbon Dioxide 26 mmol/L (23-31); Chloride 104 mmol/L (98-107); Estimated GFR-MDRD 72; Globulin 2.3 g/dL (2.4-3.5); Glucose 109 mg/dL (80-115); Protein, Total 5.4 g/dL (5.8-8.1); Sodium 137 mmol/L (136-145)
[2018-03-21] MEDS: MEROPENEM 1 GM/50 ML 1 GM in Premix Bag 1 BAG IVPB SCH (05:44)
--- NOTE | 2018-03-21 06:34 | PDOC.FM ---
- Subjective Subjective: Cleve Sanchez seen at bedside this morning. He is doing well, he has no complaints. States that his abdominal pain has completely resolved. After speaking with his and his boss, he has decided that he prefers to go back to [place] to have his Cholecystectomy there. He states that he already has an appointment with his PCP in [place] to work on getting that surgery scheduled. He denies any fever, chills, chest pain, dyspnea, abd pain, n/v. He has been tolerating his diet well. - Objective MAR Reviewed: Yes Vital Signs & Weight: Vital Signs (12 hours) Temp Pulse Resp BP BP Pulse Ox 03/21/18 05:12 97.6 F 53 L 18 131/69 96 03/21/18 00:11 131/74 03/20/18 20:00 98.1 F 64 20 166/91 H 96 03/20/18 19:45 98.1 F 64 20 166/91 H 94 L Weight Admit Weight 124.284 kg Weight 123.74 kg Most Recent Monitor Data Heart Rate from ECG 57 NIBP 111/62 NIBP BP-Mean 75 Respiration from ECG 15 SpO2 94 I&O: 03/19/18 03/20/18 03/21/18 06:59 06:59 06:59 Intake Total 616.8 3041 2250 Output Total 501 2726 750 Balance 115.8 315 1500 Result Diagrams: 03/21/18 05:13 03/21/18 05:13 <Fahad Pope - Last Filed: 03/21/18 08:25> - Objective Vital Signs & Weight: Vital Signs (12 hours) Temp Pulse Resp BP BP Pulse Ox 03/21/18 07:39 97.9 F 53 L 18 147/76 H 98 03/21/18 05:12 97.6 F 53 L 18 131/69 96 03/21/18 00:11 131/74 Weight Admit Weight 124.284 kg Weight 123.74 kg Most Recent Monitor Data Heart Rate from ECG 57 NIBP 111/62 NIBP BP-Mean 75 Respiration from ECG 15 SpO2 94 I&O: 03/20/18 03/21/18 03/22/18 06:59 06:59 06:59 Intake Total 3041 2250 Output Total 2726 750 Balance 315 1500 Result Diagrams: 03/21/18 05:13 03/21/18 05:13 <Carlo Forte - Last Filed: 03/21/18 09:29> Phys Exam - Physical Examination Constitutional: NAD HEENT: moist MMs, sclera anicteric Neck: no JVD, supple, full ROM Respiratory: no wheezing, no rales, no rhonchi, clear to auscultation bilateral Cardiovascular: RRR, no significant murmur Gastrointestinal: soft, non-tender, no distention, positive bowel sounds Musculoskeletal: no edema, pulses present Neurological: non-focal, normal sensation, moves all 4 limbs Psychiatric: normal affect, A&O x 3 Skin: no rash <Fahad Pope - Last Filed: 03/21/18 08:25> Dx/Plan (1) Septic shock Code(s): A41.9 - SEPSIS, UNSPECIFIED ORGANISM; R65.21 - SEVERE SEPSIS WITH SEPTIC SHOCK Status: Resolved (2) Pancreatitis due to common bile duct stone Code(s): K85.90 - ACUTE PANCREATITIS WITHOUT NECROSIS OR INFECTION, UNSP; K80.50 - CALCULUS OF BILE DUCT W/O CHOLANGITIS OR CHOLECYST W/O OBST Status: Acute (3) Ascending cholangitis Code(s): K83.0 - CHOLANGITIS Status: Acute (4) Increased anion gap metabolic acidosis Code(s): E87.2 - ACIDOSIS Status: Resolved (5) HTN (hypertension) Code(s): I10 - ESSENTIAL (PRIMARY) HYPERTENSION Status: Chronic (6) BPH (benign prostatic hyperplasia) Code(s): N40.0 - BENIGN PROSTATIC HYPERPLASIA WITHOUT LOWER URINRY TRACT SYMP Status: Chronic (7) Hyperbilirubinemia Code(s): E80.6 - OTHER DISORDERS OF BILIRUBIN METABOLISM Status: Resolved (8) Macrocytosis Code(s): D75.89 - OTHER SPECIFIED DISEASES OF BLOOD AND BLOOD-FORMING ORGANS Status: Acute (9) UTI (urinary tract infection) Status: Resolved (10) Renal cyst Code(s): N28.1 - CYST OF KIDNEY, ACQUIRED Status: Chronic - Plan Plan: 1) Septic Shock 2/2 Ascending cholangitis vs UTI-resolved - MAP >65 s/p initiation of levophed in the ER. Admitted to ICU on levophed gtt. - Now on IVFs @ 150 ml/hr, taken off levophed ggt after procedure on 03/19, transferred to medical floor on 03/21 - Cont. w/ Meropenem for single angent empiric antibiotic coverage for his intra-abdominal infection and UTI - BCx and UCx obtained in the ER, Urine Cx has grown presumptive E. coli, sensitive to meropenem - Continue w/ LR at 150 mL/Hr a/ strict I/Os for goal UOP 0.5 mL/Kg/Hr - General Surgery and GI consulted, appreciate recs - Decided that he prefers to have cholecystectomy in [place] closer to his family - d/c once pancreatitis is resolved 2) Acute Gallstone Pancreatitis- improved - Will continue on w/ IVF w/ LR @ 150 mL/Hr as above for goal UOP >0.5 mL/Kg/Hr - s/p ERCP with sphincterotomy and stone extraction on 03/19 - GI and surgery consulted, appreciate recs - Cont. w/ abx as noted above for extrapancreatic infection 3) Anion Gap Metabolic Acidosis likely 2/2 lactic acidosis from #1, resolved - Likely 2/2 #1. - Cont. w/ IVF 4) Elevated LFTs and Hyperbilirubinemia likely 2/2 obstructing stone - GI consulted, sphincterotomy and stone extraction done on 03/19 - Cont. w/ IVF and will continue to monitor 5) JENIFER vs CKD3 - Pt w/o prior visits to compare current renal function off of - Will continue to monitor w/ routine labs - Renally dose meds as needed 6) Parastomal anterior wall abdominal hernia (non-encarcerated/non-strangulated) - General Surgery consulted from ER - Appreciate recs 7) 10 cm Right Renal Cyst - No evidence of obstruction or hydronephrosis - B/l Renal US showed large b/l renal cysts, largest in superior pole of the right kidney. Recommended f/u in one year to document stability 8) Macrocytosis without anemia - Pt w/ endorsed EtOH intake which this is likely from - Vit B12 low at 155, methylmalonic acid pending - supplement 9) EtOH abuse - On ASE protocol 2/2 concern for possible withdrawal - Q24 hr banana bags thiamine supplementation - Counseling 10) HTN - Held home meds in setting of septic shock - Consider restarting BP meds today 11) HLD - Hold statin in setting of elevated LFTs from obstructive CBD stones s/p extraction - trend labs and resume when normal 12) BPH - Cont. w/ Flomax 13) Gout - Cont. w/ allopurinol 14) UTI - Cx great E. coli sensitive to meropenem <Fahad Pope - Last Filed: 03/21/18 08:25> Attending Addendum - Attending Addendum Date/Time: 03/21/18 0911 I personally evaluated the patient and discussed the management with Dr. Pope I agree with the History, Examination, Assessment and Plan documented above with any addition or exceptions noted below. 67M here for gallstone pancreatitis s/p ERCP with stone extraction. He is tolerating PO today with no pain. Hemodynamically stable overnight and no longer receiving IVF. Patient would like to pursue cholecystectomy in [place]. We will transition abx from meropenem to metronidazole for continued OP treatment. Advised a low fat diet and cholecystectomy within the next 6 weeks per recs. Dietary consultation prior to discharge today. <Carlo Forte - Last Filed: 03/21/18 09:29>
[2018-03-21 08:17] LABS: LDH 141 U/L (125-220); Lipase 297 U/L (8-78)
[2018-03-21] MEDS ORDERED: Lisinopril 5 MG TAB PO SCH (09:00)
[2018-03-21] MEDS: Magnesium Oxide 400 MG TAB PO SCH (09:13)
[2018-03-21] MEDS: Folic Acid 1 MG TAB PO SCH (09:15)
[2018-03-21] MEDS: Allopurinol 300 MG TAB PO SCH (09:15)
[2018-03-21] MEDS: Enoxaparin Sodium 40 MG/0.4 ML SYRINGE SC SCH (09:16)
[2018-03-21] MEDS: Multivitamin W/ Minerals 1 TAB PO SCH (09:16)
[2018-03-21] MEDS: Tamsulosin HCl 0.4 MG CAP PO SCH (09:18)
--- NOTE | 2018-03-21 11:33 | PRG ---
DATE OF SERVICE: 03/21/2018 He is better this morning, less pain, less shortness of breath. PHYSICAL EXAMINATION: VITAL SIGNS: Blood pressure 147/76, sats are 97 on room air, temperature 97.9, respirations 18. CHEST: Chest reveals decreased breath sounds, no wheezing. CARDIAC: Normal S1, S2. No gallops. ABDOMEN: Soft, no masses. IMPRESSION: 1. Pancreatitis. 2. Gallbladder cystitis. Lab looks much improved. The patient snores, but no history of witnessed apnea. PLAN: Disposition as per GI. At some stage he needs to have his gallbladder taken out. Pulmonary will follow at a distance. Please call as needed.
[2018-03-21 11:34] VITALS: BP 164/81; TEMP 98
[2018-03-21 14:44] VITALS: BMI 37.0
--- NOTE | 2018-03-21 21:37 | DIS-2 ---
DATE OF ADMISSION: 03/18/2010 DATE OF DISCHARGE: 03/21/2018 RESIDENT: Fahad Pope M.D. ADMITTING ATTENDING: Carlo Forte M.D. DISCHARGE ATTENDING: aCrlo Forte M.D. CONSULTATIONS: 1. Gastroenterology, Dr. Watson on 03/19/2018. 2. General Surgery, Dr. Retana on 03/19/2018. 3. Pulmonology, Dr. Mendoza on 03/19/2018. 4. Dietitian on 03/21/2018. PROCEDURES: 1. Chest x-ray from 03/18/2018; impression, cardiomegaly with mild vascular engorgement. No signifi cant effusion. 2. CT abdomen and pelvis from 03/18/2018; impression, cholelithiasis with numerous gallstones and a mildly distended gallbladder. There are inflammatory changes surrounding the pancreas, most prominen t around the head of the pancreas and second portion of the duodenum, pancreatitis should not be excl uded. Large right renal cyst, exophytic from the superior right kidney measuring up to 10 cm. Recom mend repeat abdominal CT or bilateral renal ultrasounds to document stability. Parastomal anterior a bdominal wall hernia in the left abdomen. 3. Chest x-ray from 03/18/2018; impression, lungs appear clear of infiltrate. Heart size is upper n ormal. There is a central line in place with tip overlying the SVC. No acute lung process identifie d. 4. ERCP x-ray from 03/19/2018, single image shows opacification of the common duct. No filling defe ct identified on a single image. 5. Renal ultrasound from 03/19/2018, impression, large bilateral renal cysts, largest within the sup erior pole of the right kidney is mildly septated. Followup examination in one year is recommended t o document stability. 6. ERCP done on 03/19/2018; assessment, choledocholithiasis, status post sphincterotomy and stone ex traction revealing multiple black stones. Occlusion cholangiogram showed no further filling defects. 7. Blood culture from 03/18/2018, no growth to date. 8. Urine culture from 03/18/2018, final, E. coli sensitive to cefepime, ceftazidime, ceftriaxone, ge ntamicin, meropenem, nitrofurantoin, Zosyn, and tobramycin; resistant to Bactrim, levofloxacin, cipro floxacin, ampicillin, and ampicillin sulbactam. PRIMARY DIAGNOSES: 1. Septic shock secondary to gallstone pancreatitis with possible ascending cholangitis. 2. Urinary tract infection. SECONDARY DIAGNOSES: 1. Acute kidney injury on chronic kidney disease stage 3. 2. A 10 cm right renal cyst. 3. Parastomal hernia. 4. Hypertension. 5. Hyperlipidemia. 6. BPH. 7. Gout. 8. History of colon cancer, status post colectomy. DISCHARGE MEDICATIONS: Resume all home medications includin. Tamsulosin HCL 0.4 mg p.o. at bedtime. 2. Ibuprofen 800 mg p.o. at bedtime. 3. Lisinopril 5 mg p.o. daily. 4. Atorvastatin calcium 20 mg p.o. at bedtime. 5. Allopurinol 300 mg p.o. at bedtime. 6. Triamterene/hydrochlorothiazide 37.5 mg/25 mg 1 cap p.o. daily. 7. Metoprolol tartrate 50 mg p.o. b.i.d. 8. Aspirin 81 mg p.o. at bedtime. NEW HOME MEDICATIONS: 1. Folic acid 1 mg p.o. daily. 2. Multivitamin with minerals 1-tab p.o. daily. 3. Metronidazole 500 mg p.o. b.i.d. for 7 days. HISTORY OF PRESENT ILLNESS AND HOSPITAL COURSE: Cleve Sanchez is a 67-year-old male with a past medic al history of hypertension, hyperlipidemia, gout, BPH who presented to the ED with a 1.5-day history of severe right upper quadrant abdominal pain. He characterizes the pain as severe and sharp migrati ng between the right upper quadrant and epigastric region with radiation to the back. He had associa zak nausea and vomiting, nonbilious, nonbloody vomitus. In the ED, he was hypotensive on presentatio n, given 4 L of normal saline and started on Levophed drip to maintain pressures. CT of the abdomen showed cholelithiasis with distended gallbladder and inflamed pancreas. Patient was given Tylenol fo r pain, started on vancomycin 1 g, meropenem 1 g for UTI and presumed ascending cholangitis. Patient was admitted to the IMCU for septic shock secondary to gallstone pancreatitis, UTI and presumed asce nding cholangitis. He was on a Levophed drip to maintain blood pressures, status post 4 L normal dong ine. Upon arriving to the floor, he was only continued on meropenem for intra-abdominal infection an d coverage for UTI. Blood cultures were negative during the admission. Urine cultures did grow out E. coli bacteria sensitive to meropenem. Patient was started on IV fluids initially at 150 mL an nataliia r and strict I's and O's. General Surgery and GI were consulted from the ED. Patient had ERCP perfo rmed on 03/19/2018 in the morning, sphincterotomy was done and stone extraction was performed as well . Notable initial labs were white blood cell count 21.7, hemoglobin 13.9, hematocrit 38.0, MCV of 10 1, platelet count of 134, neutrophil percentage 66%, bands 30%. Sodium 131, potassium 3.8, chloride 103, bicarbonate 22, BUN 21, creatinine 1.66, glucose 105, total bilirubin of 4.9, AST 92, ALT 81, al kaline phosphatase 81. Initial lipase was 15,361. Initial LDH was 404 and vitamin B12 is 155. TSH was normal. Cortisol was normal. After the ERCP, his labs all trended towards normal. On the day o f discharge, he had a lactate dehydrogenase of 141, a lipase of 297, a bilirubin of 1.0, AST of 26, A LT of 42, alkaline phosphatase of 66, calcium maintained normal levels throughout entire admission, i nitially 9.9. On day of discharge, it was 8.9. IV fluids were continued throughout entirety of admi ssion. Patient was initially made n.p.o. and then started on clear liquids. He tolerated his diet. After his ERCP, his abdominal pain had resolved completely. Patient was transitioned to full liquid diet. On 03/20 and regular low-fat diet on 03/21. Patient tolerated all of his diets well. [place] was given the option to proceed with cholecystectomy this hospitalization, but elected to return [facility] home to [place] where his family is to have cholecystectomy done there. General Surgery was cons ulted and spoke to the patient several times and determined that he was cleared for discharge from [facility] standpoint after his pancreatitis resolves to go home and have cholecystectomy in [place]. Lianne bradford was taken off Levophed drip after his ERCP. He maintained adequate blood pressures for the entir ety of his admission on 03/21/2018. His blood pressures had become elevated and he was restarted on his home medications. On day of discharge, the patient was transitioned from meropenem to p.o. metro nidazole for continued outpatient treatment. It was recommended that patient continue to follow a lo w-fat diet and per General Surgery recommendations have cholecystectomy within the next 6 weeks. Dickson montgomery consultation was also ordered. On day of discharge, patient receives adequate instruction on di et and is also recommended that patient not drink any alcohol. The patient expressed understanding a nd agreed with plan. Patient was discharged on 03/21/2018. DISPOSITION: Stable. The patient should do well if he follows dietary instructions and follows up w ith primary care provider and general surgeon in [place] to schedule cholecystectomy. Also, instruc zak to continue oral metronidazole outpatient. DISCHARGE INSTRUCTIONS: 1. Location: Home. 2. Diet: Low fat diet. 3. Activity as tolerated. 4. Follow up with PCP and general surgeon in [place].
--- NOTE | 2018-03-24 12:47 | EKG ---
Test Reason : Blood Pressure : / mmHG Vent. Rate : 144 BPM Atrial Rate : 144 BPM P-R Int : 152 ms QRS Dur : 074 ms QT Int : 280 ms P-R-T Axes : 077 116 035 degrees QTc Int : 433 ms Sinus tachycardia with occasional Premature ventricular complexes and Fusion complexes Right ventricular hypertrophy Inferior infarct , age undetermined Abnormal ECG Confirmed by HEIDE WHITE ([id number]), communications editor JEIMY MONTELONGO ([id number]) on 03/24/2018 12:47:16 PM Referred By: Confirmed By:HEIDE WHITE
== END 2018-03-21 13:11 | disposition home or self-care (01) | DRG 871 ==
LOC: ERS 18:56 → CCU 23:51 → IMCU/EMU 03-19 22:18 → T4-B 03-20 14:05
PROVIDERS: ADMIT Student in an Organized Health Care Education/Training Program; ATTEND Student in an Organized Health Care Education/Training Program
PROC: 0FC98ZZ Extirpation of Matter from Common Bile Duct, Via Natural or Artificial Opening Endoscopic (ICD-10-PCS; principal; 2018-03-19)
PROC: BF10YZZ Fluoroscopy of Bile Ducts using Other Contrast (ICD-10-PCS; 2018-03-19)
DX: A41.9 Sepsis, unspecified organism (principal); R65.21 Severe sepsis with septic shock; K85.10 Biliary acute pancreatitis without necrosis or infection; N39.0 Urinary tract infection, site not specified; N17.9 Acute kidney failure, unspecified; K80.30 Calculus of bile duct with cholangitis, unspecified, without obstruction; E87.2 Acidosis; N28.1 Cyst of kidney, acquired; I51.7 Cardiomegaly; B96.20 Unspecified Escherichia coli [E. coli] as the cause of diseases classified elsewhere; I12.9 Hypertensive chronic kidney disease with stage 1 through stage 4 chronic kidney disease, or unspecified chronic kidney disease; N18.3 Chronic kidney disease, stage 3 (moderate); K43.5 Parastomal hernia without obstruction or gangrene; E78.5 Hyperlipidemia, unspecified; N40.0 Benign prostatic hyperplasia without lower urinary tract symptoms; M10.9 Gout, unspecified; Z85.038 Personal history of other malignant neoplasm of large intestine; D75.89 Other specified diseases of blood and blood-forming organs; F10.10 Alcohol abuse, uncomplicated; Y90.9 Presence of alcohol in blood, level not specified; Z93.3 Colostomy status; E66.9 Obesity, unspecified; Z68.37 Body mass index [BMI] 37.0-37.9, adult
CPT/HCPCS: 36415; 36556; 71045; 74177; 74330; 76770; 80053; 81003; 81015; 82533; 82550; 82553; 82607; 82747; 83090; 83605; 83615; 83690; 83735; 84443; 84484; 85007; 85014; 85025; 85027; 85046; 85060; 87040; 87077; 87086; 87186; 90471; 90670; 93005; 96361; 96365; 96374; 96375; A4216; G0009; G8978-GP-CL; G8979-GP-CJ; G8987-GO-CI; G8988-GO-CI; G8989-GO-CI; J1100; J1650; J2001; J2185; J2250; J2405; J2704; J3010; J3370; J3411; J3475; J7042; J7050; Q9961